=== PATIENT | female | born 1940 | race Caucasian/White ===

== ENCOUNTER 2020-09-24 09:54 | Emergency (ER) | payer BC, MEDICARE, OTHER ==
[~2020-09-24] VITALS: Ht 157.5 cm; Wt 77.0 kg
[2020-09-24] MEDS ORDERED: LORazepam 1MG TABLET PO ONE (10:00)
--- NOTE | 2020-09-24 10:11 | NUR ---
TO CT VIA [facility]
[2020-09-24] MEDS ORDERED: LORazepam 1MG TABLET ONE (10:27)
[2020-09-24] MEDS ORDERED: PLEASE ENTER HEIGHT AND WEIGHT MC SCH (10:30)
[2020-09-24] MEDS ORDERED: PLEASE ENTER ALLERGIES MC SCH (10:30)
--- NOTE | 2020-09-24 10:48 | NUR ---
ASSUME CARE OF PT AT THIS TIME. PT PREVIOUSLY IN 'S ROOM, ANXIOUS, COMPLAINING OF HER REGULAR MIGRAINE SYMPTOMS. PT SPEAKING CLEARLY, BUT STRUGGLING TO SPEAK SPECIFIC WORDS. PT LAUGHING, STRUGGLING TO REMEMBER PHONE NUMBER. PT REPORTS MIGRAINE PAIN DECREASED FROM WHEN IN PT'S ROOM. "I'M READY TO LEAVE" PT BELIEVES CURRENT SYMPTOMS HAVE TO DO WITH CARING FOR SICK AND ANXIETY AND STRESS. WHEN PT TALKS ABOUT TAKING CARE OF , SPEAKS CLEARLY AND DOES NOT STRUGGLE FINDING WORDS. "I WAS CLEANING UP URINE, POOP. IT WAS A LOT. I'M USUALLY NOT SO WEAK, I'M USUALLY STRONGER." PT AND RN DISCUSSED DIFFICULTY TAKING CARE OF A FAMILY MEMBER AND CONSTANT STRESS. PT TEARFUL.
[2020-09-24 11:05] LABS: BASOPHILS % (AUTO) 1 % (0-1); EOSINOPHILS % (AUTO) 1 % (1-7); LYMPHOCYTES % (AUTO) 26 % (22-44); MEAN CORPUSCULAR HEMOGLOBIN 30.5 pg (27.0-34.8); MEAN CORPUSCULAR HGB CONC 34.1 g/dL (32.4-35.8); MEAN PLATELET VOLUME 7.8 fL (7.4-10.4); MONOCYTES % (AUTO) 11 % (2-9); NEUTROPHILS % (AUTO) 61 % (42-75); PLATELET COUNT 192 x10^3/uL (130-400); RED BLOOD COUNT 5.14 x10^6/uL (3.82-5.3); RED CELL DISTRIBUTION WIDTH 13.5 % (9.6-15.2)
[2020-09-24 11:07] LABS: ALBUMIN 3.5 g/dL (3.4-5.0); ANION GAP 6 mmol/L (5-15); CALCIUM 8.9 mg/dL (8.5-10.1); CHLORIDE 109 mmol/L (98-107); CREATININE 1.04 mg/dL (0.55-1.02)
[2020-09-24 11:14] LABS: TROPONIN I < 0.015 ng/mL (0.000-0.045)
--- NOTE | 2020-09-24 11:15 | NUR ---
PT OXYGEN LEVELS WERE AT 75-80%, SO NASAL CANULA WAS PLACED ON PT AT 2L. O2 LEVELS INCREASED TO 96%.
[2020-09-24 11:21] LABS: MD NO
--- NOTE | 2020-09-24 11:54 | NUR ---
ED MD IN TO ASSESS PT AND DISCUSS PLANS FOR DC.
--- NOTE | 2020-09-24 12:41 | NUR ---
PT UNABLE TO AMBULATE STEADILY. ED MD AWARE. PT BACK IN BED. PLAN FOR ADDITIONAL IMAGING.
--- NOTE | 2020-09-24 13:02 | NUR ---
REPORT TO JAKE ALLEN. PT CURRENTLY IN MRI.
[2020-09-24 14:45] VITALS: BP 149/82
== END 2020-09-24 14:47 | disposition home or self-care (01) ==
LOC: ED 10:48
DX: Z00.00 Encounter for general adult medical examination without abnormal findings (principal); R51.9 Headache, unspecified; R94.31 Abnormal electrocardiogram [ECG] [EKG]; R07.89 Other chest pain
CPT/HCPCS: 36415; 70450; 70551; 71045; 80048; 80320; 82040; 84484; 85025; 93005; 99285; G0480